=== PATIENT | female | born 1990 | race American Indian/Alaskan Native ===

== ENCOUNTER 2022-01-02 21:31 | Emergency (ER) | payer OTHER ==
--- NOTE | 2022-01-02 22:09 | Emergency Department Report ---
ED Lower Extremity HPI - General Chief Complaint: Extremity Injury, Lower Stated Complaint: LT LEG INJURY Time Seen by Provider: 01/02/22 22:05 Source: patient Mode of arrival: Wheelchair Limitations: No Limitations, Physical Limitation - History of Present Illness Initial Comments: 31-year-old female involved in a work-related crush injury on December 29, 2021 where her leg was crushed between 2 pallets resulting in abrasion to the anterior tibial region and some general swelling she was able to keep her leg elevated and symptoms were significantly improved. She was following up with the urgent care department today while in the office for extended present time had her leg in a gravity dependent position and states that the swelling has progressively worsened while in the the urgent care office. She noticed more bruising with developing associated with some calf tightness and pain for which they applied a Abdiaziz wrap around the mid knee stopping at the lower third of the leg which she states made her symptoms significantly worse. Due to the the throbbing and swelling she remove the Abdiaziz wrap consult evaluation of the emergency department tonight. She reports no chest pain palpitations no shortness of breath no history of blood clots MD Complaint: leg injury -: Sudden Injury: Leg: Left Improves With: immobilization, rest (Elevation) Worsens With: weight bearing Associated Symptoms: swelling - Related Data Previous Rx's Medication Instructions Recorded Last Taken Type Ketorolac [Toradol] 10 mg PO Q6H PRN #14 01/03/22 Unknown Rx Allergies Allergy/AdvReac Type Severity Reaction Status Date / Time No Known Allergies Allergy Verified 01/02/22 21:55 ED Review of Systems ROS: Stated complaint: LT LEG INJURY Other details as noted in HPI Comment: All other systems reviewed and negative ED Past Medical Hx - Social History Smoking Status: Never Smoker Substance Use Type: None - Medications Home Medications: Home Medications Medication Instructions Recorded Confirmed Last Taken Type Ketorolac [Toradol] 10 mg PO Q6H PRN #14 01/03/22 Unknown Rx ED Physical Exam - General Limitations: No Limitations, Physical Limitation General appearance: alert, in no apparent distress - Head Head exam: Present: atraumatic, normocephalic - Eye Eye exam: Present: normal appearance - ENT ENT exam: Present: mucous membranes moist - Neck Neck exam: Present: normal inspection - Respiratory Respiratory exam: Present: normal lung sounds bilaterally. Absent: respiratory distress - Cardiovascular Cardiovascular Exam: Present: regular rate, normal rhythm. Absent: systolic m urmur, diastolic murmur, rubs, gallop - GI/Abdominal GI/Abdominal exam: Present: soft, normal bowel sounds - Extremities Exam Extremities exam: Present: normal inspection, tenderness, normal capillary refill - Expanded Lower Extremity Exam Left Lower Leg exam: Present: swelling, ecchymosis. Absent: abrasion, deformity, crepidus, dislocation, Danny's sign Ankle exam: Present: normal inspection, swelling, ecchymosis. Absent: crepidus, dislocation, erythema Neuro vascular tendon exam: Absent: pulse deficit, abnormal cap refill, motor deficit, sensory deficit, tendon deficit - Back Exam Back exam: Present: normal inspection - Neurological Exam Neurological exam: Present: alert, oriented X3 - Psychiatric Psychiatric exam: Present: normal affect, normal mood - Skin Skin exam: Present: warm, dry, intact, normal color. Absent: rash ED Course Vital Signs 01/02/22 21:45 Temperature 99.0 F Pulse Rate 87 Respiratory 18 Rate Blood Pressure 105/70 O2 Sat by Pulse 97 Oximetry ED Lower Extremity MDM - Radiology Data Radiology results: report reviewed [facility] [address] [place] [address] Vascular Lab Report Signed Patient: SRI ZAMORANO MR# : [id number] : 1990 Acct:[id number] Age/Sex: 31 / F ADM Date: 01/02/22 Loc: ED Attending Dr: Ordering Physician: RIGO LEVIN Date of Service: 01/02/22 Procedure(s): VL venous duplex LE LT Accession Number(s): [id number] cc: RIGO LEVIN DUPLEX DOPPLER LOWER EXTREMITY VEINS, LEFT INDICATION: lower ext swelling and pain. TECHNIQUE: Duplex doppler imaging was performed through the veins of the left lower extremity using venous compression and other maneuvers. COMPARISON: None available. FINDINGS: Common femoral vein: Negative. Superficial femoral vein: Negative. Popliteal vein: Negative. Calf veins: Negative. Additional findings: None. IMPRESSION: 1. No sonographic evidence for DVT in the left lower extremity. Signer Name: Mirta Condon MD Signed: 01/02/2022 11:18 PM Workstation Name: [id number] Transcribed By: Dictated By: Mirta Condon MD Electronically Authenticated By: Mirta Condon MD Signed Date/Time: 01/02/222317 DD/ 16 TD/TT: Print Cancel - Medical Decision Making 31-year-old female [facility] emerge department complaining of swelling and pain to the left lower extremity following a crush injury at work involving some pallets about 4 to 5 days ago. She followed up in urgent care today where her symptoms got worse after she was unable to keep it elevated per her normal routine. This was compounded by the decision to place an Abdiaziz wrap on the calf portion of the injury resulting in more swelling to the lip to the lower third of the leg and the foot that continue to to worsen while he was in place and advised to come to the emergency department to be checked out. Ultrasounds were obtained showed no evidence of a DVT her pulses were good extremity was warm no foot drop or any evidence of any peroneal nerve injury. Critical care attestation.: If time is entered above; I have spent that time in minutes in the direct care of this critically ill patient, excluding procedure time. ED Disposition Clinical Impression: Crush injury, leg, lower, Left leg swelling Disposition: 01 HOME / SELF CARE / HOMELESS Is pt being admited?: No Does the pt Need Aspirin: No Condition: Stable Instructions: How to Use Cold Therapy, [id number], Elastic Bandage and RICE Therapy, How to Use Cold Therapy Additional Instructions: He was seen by emergency department for left lower extremity swelling and pain which was sustained secondary to a crush injury a few days ago. Following her visit in the ED urgent care the swelling had worsened this is most likely due to your inability to elevate the leg to the appropriate height for increased duration of time. This was worsened with Abdiaziz wrap which was applied to the lower extremity. Please refrain from wearing any compressive devices partially treated your injured area as they can promote more swelling, more venous stasis leading to an increased likelihood of a blood clot. The ultrasound today did not show any evidence of a DVT. Prescriptions: Ketorolac [Toradol] 10 mg PO Q6H PRN #14 PRN Reason: Pain Referrals: JORJE BAGLEY MD [Primary Care Provider] - 3-5 Days
--- NOTE | 2022-01-02 23:22 | Vascular Lab Report ---
DUPLEX DOPPLER LOWER EXTREMITY VEINS, LEFT INDICATION: lower ext swelling and pain. TECHNIQUE: Duplex doppler imaging was performed through the veins of the left lower extremity using venous compr ession and other maneuvers. COMPARISON: None available. FINDINGS: Common femoral vein: Negative. Superficial femoral vein: Negative. Popliteal vein: Negative. Calf veins: Negative. Additional findings: None. IMPRESSION: 1. No sonographic evidence for DVT in the left lower extremity. Signer Name: Mirta Condon MD Signed: 01/02/2022 11:18 PM Workstation Name: [id number]
[2022-01-03] MEDS ORDERED: HYDROcodone/ACETAMINOPHEN 5-325 MG TAB PO STA (02:36)
[2022-01-03 03:04] VITALS: BP 112/74
== END 2022-01-03 03:08 | disposition home or self-care (01) ==
LOC: EDBD → ED 21:31
DX: S87.82XA Crushing injury of left lower leg, initial encounter (principal); R22.42 Localized swelling, mass and lump, left lower limb; X58.XXXA Exposure to other specified factors, initial encounter; Y93.89 Activity, other specified; Y92.89 Other specified places as the place of occurrence of the external cause; Y99.8 Other external cause status
CPT/HCPCS: 99283